=== PATIENT | female | born 1940 | race Caucasian/White ===

== ENCOUNTER → 2024-04-05 12:06 | Outpatient (REF) | payer MEDICARE, BC, SELFPAY ==
[2024-04-05 12:56] LABS: % Basophils 0.5 % (0-2); % Eosinophils 1.9 % (0-6); % Immature Granulocytes 0.2 % (0-0.5); % Lymphocytes 27.7 % (20.5-51.1); % Neutrophils 62.7 % (42.2-75.2); Absolute Eosinophils 0.1 10^3/uL (0-0.7); Absolute Lymphocytes 1.8 10^3/uL (1.2-3.4); Absolute Monocytes 0.4 10^3/uL (0.1-0.6); Hematocrit 35.8 % (37.0-47.0); Hemoglobin 11.7 g/dL (12.0-16.0); Mean Corp Hgb Conc. 32.7 g/dL (33.0-37.0); Mean Corpuscular Hgb 32.3 pg (27.0-31.0); Mean Corpuscular Volume 98.9 fL (81.0-99.0); Mean Platelet Volume 8.5 fL (7.4-10.4); Nucleated Red Blood Cells % 0 %; Platelet Count 404 10^3/uL (130-400); Red Blood Cell Count 3.62 10^6/uL (4.20-5.40); Red Cell Dist. Width 14.2 % (11.5-14.5); White Blood Cell Count 6.3 10^3/uL (4.8-10.8)
[2024-04-05 13:12] LABS: ALT (SGPT) 20 U/L (0-35); AST (SGOT) 29 U/L (14-36); Albumin 3.7 g/dl (3.5-5.0); Alkaline Phosphatase 120 U/L (38-126); Blood Urea Nitrogen 10 mg/dl (7-17); Calcium 9.7 mg/dl (8.4-10.2); Carbon Dioxide 30 mmol/L (22-30); Chloride 102 mmol/L (98-107); Glucose 99 mg/dl (70-99); Potassium 4.1 mmol/L (3.5-5.1); Sodium 136 mmol/L (135-145); Total Bilirubin 0.4 mg/dl (0.2-1.3); Total Protein 7.1 g/dl (6.3-8.2); eGFR > 60.00
== END ==
LOC: SDSPAT 12:06
PROVIDERS: ATTENDING PHYSICIAN Internal Medicine Cardiovascular Disease; FAMILY PHYSICIAN Internal Medicine; OTHER PHYSICIAN Internal Medicine Cardiovascular Disease
DX: Z01.818 Encounter for other preprocedural examination (principal); R06.00 Dyspnea, unspecified; R53.83 Other fatigue
CPT/HCPCS: 36415; 80053; 85025; 93005

== ENCOUNTER 2024-04-08 13:50 | Inpatient (IN) | payer MEDICARE, BC, SELFPAY ==
[2024-04-05 12:22] VITALS: BMI 20.2
--- NOTE | 2024-04-05 13:44 | HPS.HSE ---
Family Physician
-
Family Physician: Dilia Hudson
Chief Complaint
-
Dyspnea and fatigue.
History of Present Illness
The patient is an 83 year old female presenting today for recent complaints of dyspnea and fatigue. These symptoms started late last year and most often occur with heavy exertion. Her routine lunch truck driver, Dr. Hal Zamora, advised she
proceed with an echocardiogram and PET-CT for further evaluation of her symptoms. An echocardiogram on 12/23/2023 demonstrated a preserved ejection fraction with grade 1 diastolic dysfunction, mild-moderate tricuspid regurgitation, mild mitral
regurgitation, and mild pulmonary hypertension. Her PET-CT on 01/18/2024, however, suggested a moderate sized area of ischemia in the septal and apical segments. Given these results, it is recommended that she proceed with a left cardiac
catheterization at this time. She denies any current complaints today such as chest pain, shortness of breath at rest, nausea, vomiting, diarrhea, lightheadedness, cough, sore throat, or fever.
Medical History
Past Medical History
Past Medical History: Reports Other
Additional Past Medical History:
1. Dyspnea and fatigue.
2. Elevated blood pressure without diagnosis of hypertension.
3. Hyperlipidemia.
4. Coronary artery disease.
5. Mild-moderate tricuspid regurgitation.
6. Mild mitral regurgitation.
7. Mild pulmonary hypertension.
8. Rare palpitations.
9. Hiatal hernia.
10. Colon polyps.
11. Diverticulosis.
12. Hemorrhoids.
13. Vertigo.
14. Mild cognitive impairment.
15. Multinodular goiter.
16. Overactive bladder.
17. Chronic back pain.
18. Osteoarthritis, status post left total knee arthroplasty 2019.
19. Multifactorial anemia.
20. Macular degeneration.
Past Surgical History: Reports Other
Additional Past Surgical History:
1. Left total knee arthroplasty.
2. Tonsillectomy.
3. [place]ore teeth extraction.
4. Colonoscopy.
5. Endoscopy.
Social History
Tobacco: Non-smoker
Alcohol: None
Personal:
Living: Other (She lives in a 3 story home independently. )
Family History
Family History: Not pertinent
Allergies / Home Medications
Allergy/Medication List:
Home medications:
1. Prevagen 1 tablet p.o. daily.
2. Rosuvastatin 5 mg p.o. at bedtime.
3. Solifenacin 10 mg p.o. daily.
4. PreserVision 1 tab p.o. daily.
Allergies: Diazepam. Oxybutynin. Myrbetriq. Tramadol.
Adverse drug reactions: Most statins (muscle spasms).
Review of Systems
-
A 12 point ROS was completed and negative except as noted: Yes
Physical Exam
Vital Signs
Blood pressure 148/76. Heart rate 81. Respirations 18. Pulse ox 96% on room air.
Height 5 feet, 4 inches. Weight 53.3 kg. BMI 20.2.
Physical Exam
General: Well Developed, Well Nourished and No Apparent Distress
HEENT: NormoCephalic, Moist mucous membranes, Atraumatic and PERRLA
Respiratory: Clear
Cardiac: Regular Rhythm
GI: Soft, Non Tender and Non Distended
Musculoskeletal: Normal Gait & Station
Skin: Warm and Dry
Neuro: AO x 3 and Other (Mild cognitive deficits as baseline. )
Laboratory Results
-
DIAGNOSTIC STUDIES as of 04/05/2024: White blood cell count 6.3. Hemoglobin 11.7. Platelet count 404,000. Sodium 136. Potassium 4.1. BUN 10. Creatinine 0.7. Glucose 99. Calcium 9.7. AST 29. ALT 20. Albumin 3.7.
EKG 04/05/2024: Normal sinus rhythm.
Impression/Plan
-
IMPRESSION/PLAN:
1. Dyspnea and fatigue: The patient is in need of a left cardiac catheterization with Dr. Keanu Waddell on 04/07/2024. The benefits and risks of the procedure have been explained to the patient. The patient understands these risks and wishes to
proceed. She has been advised to start Aspirin pre-operatively. She will start with one dose of full dose Aspirin today followed by a baby Aspirin daily, up to and including the morning of her procedure.
[2024-04-07] VITALS (24 sets, daily range): BP systolic 103–147; BP diastolic 41–98; BMI 20.1
[2024-04-07] MEDS: LOW STRENGTH ASPIRIN 81 MG PO (08:12)
[2024-04-07] MEDS: NSS 1000 IV ×2 (08:13→10:31)
--- NOTE | 2024-04-07 10:48 | ITS.CL.CATH ---
Arc Welder Apprentice - Catheterization
Cardiac Catheterization
Procedure Report:
CARDIAC CATHETERIZATION REPORT
Date of Procedure: 04/07/2024
Referring: Hal Zamora MD
Indication: Exertional dyspnea with abnormal stress study
HEMODYNAMIC DATA
AO: 136/68
LV: 136/12
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 The visually estimated ejection fraction is 60%
CORONARY ANGIOGRAPHY
Dominance: Right
Left Main: Normal
LAD: The LAD is moderately calcified. There is 70% proximal LAD stenosis with 99% mid LAD stenosis on an angulated segment. There is LOLIS grade II flow from the lesion to the apical LAD. The lesion originates just distal to the takeoff of the
large second diagonal branch. The first diagonal branch is a twig.
Circumflex: Normal
RCA: Dominant mildly calcified vessel with mild luminal irregularities. The RCA terminates with a large PDA and a very small right posterolateral branch
Closure Device: None-the procedure was performed via the right femoral artery using a 5 Thai sheath. Of note, we accessed the right radial artery easily but were unable to pass a soft wire more than several centimeters and after a second arterial
puncture with the same issue we converted to a right femoral artery approach. Manual compression was used to achieve hemostasis at the procedure conclusion.
Radiation (mGy): 139
DAP (cm2.Gy): 10.1
Fluoroscopy time: 1.3 minutes
CONCLUSIONS
1: Preserved left ventricular wall motion with EF 60%. 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
2: Single-vessel CAD as described with high-grade lesions in the proximal and mid LAD.
3. I have recommended revascularization given the severity of the LAD disease and the impaired distal flow. Options include attempted PCI of the proximal and mid LAD lesions versus CABG with grafting of the distal LAD and large second diagonal
branch. The PCI option would be a high risk as the 99% mid LAD stenosis is on an angulated segment and we may not be able to wire this lesion and in attempting to do so could possibly cause an occlusive dissection. Accordingly, I increase the risk
assessment to 1-2% mortality risk and deferred the PCI until we can assure an open operating room with surgical team on standby. After discussion with the patient, we will have cardiac surgery see her today to give their opinion about the best way
to treat her coronary artery disease. I am concerned about the history provided by her family of mild cognitive impairment in terms of a possible cardiopulmonary bypass run. I recommended to her that we admit her today with plan for this high risk
PCI procedure tomorrow if she decides to proceed as recommended. I am not comfortable with her going home with LOLIS grade II flow in the LAD. If she is inclined not to have any revascularization then discharge would be appropriate on medical
therapy
Copy to: Hal Zamora MD, Dilia Hudson, DO
Keanu Waddell MD, [facility], [facility]
[2024-04-07] MEDS: PLAVIX 600 MG PO (14:32)
--- NOTE | 2024-04-07 15:15 | CM ---
CM following for DC planning needs.
Met w/ patient, son and DIL at bedside to complete initial assessment. Pt. resides in a private, multi level home alone. Functionally, patient is reportedly indep. w use of a SPC. Pt. has Rx plan and uses [facility] in [facility] for prescription needs.
Spoke w/ bedside RN; patient slightly confused-med sitter ordered.
Will follow closely for DC planning needs.
[2024-04-07] MEDS: TYLENOL 650 MG PO (15:56)
--- NOTE | 2024-04-07 18:46 | PTCARENOTE ---
Pt received post cardiac cath done via right femoral artery, dressing dry and intact, no sign of bleeding or hematoma. Pt c/o back discomfort which resolved after tylenol. Pt very pleasant but forgetful, oriented to place and person but not time. Pt
at risk to fall, precautions in place and medsitter surveillance. Pt's family at bedside. Pt OOB using a walker with minimal assistance, voiding without difficulty. Telemetry shows sinus rhythm. Plan for high risk PCI on 04/08.
[2024-04-07] MEDS: CRESTOR 5 MG PO (21:46)
--- NOTE | 2024-04-07 23:30 | PTCARENOTE ---
Pt. forgetful and confused at times, does attempt OOB without assist and did remove her tele monitor. Easily reoriented, bed alarm and med sitter on. Right groin dressing CDI with no S&S hematoma, pedal pulse palpable. No complaints
CP/discomfort, NSR on the monitor. Pt. sleeping.
[2024-04-08] VITALS (13 sets, daily range): BP systolic 91–137; BP diastolic 49–111; PULSE 86; BMI 20.1
[2024-04-08 03:01] LABS: Hemoglobin 11.1 g/dL (12.0-16.0); Mean Corp Hgb Conc. 32.6 g/dL (33.0-37.0); Mean Corpuscular Hgb 32.1 pg (27.0-31.0); Mean Corpuscular Volume 98.3 fL (81.0-99.0); Mean Platelet Volume 8.6 fL (7.4-10.4); Platelet Count 336 10^3/uL (130-400); Red Blood Cell Count 3.46 10^6/uL (4.20-5.40); Red Cell Dist. Width 14.6 % (11.5-14.5); White Blood Cell Count 7.9 10^3/uL (4.8-10.8)
[2024-04-08 03:16] LABS: Blood Urea Nitrogen 15 mg/dl (7-17); Calcium 9.3 mg/dl (8.4-10.2); Carbon Dioxide 28 mmol/L (22-30); Chloride 106 mmol/L (98-107); Estimated Creatinine Clearance 62 ml/min; Glucose 103 mg/dl (70-99); HDL Cholesterol 50 mg/dl; LDL Cholesterol, Calculated 102 mg/dl; Potassium 4.1 mmol/L (3.5-5.1); Sodium 136 mmol/L (135-145); Total Cholesterol 173 mg/dl (50-199); Triglyceride 108 mg/dl (10-149); Very Low Density Lipoprotein 21 mg/dl (0-30); eGFR > 60.00
[2024-04-08] MEDS: LOW STRENGTH ASPIRIN 81 MG PO (08:42)
[2024-04-08] MEDS: PLAVIX 75 MG PO (08:42)
--- NOTE | 2024-04-08 09:34 | PTCARENOTE ---
Pt AAO to self only. Pt remains impulsive and forgetful. Pt's family at bedside. Pt's bed and chair alarms are off at this time. Video monitoring on standby. Constant visualization by RN. Will monitor.
--- NOTE | 2024-04-08 11:43 | CM ---
Addendum entered by CHINMAY Greenwood 04/08/24 16:07:
Pt. evaluated by PT. Collaborated w/ PT post evaluation. Some concern w/ unsteadiness for transfers and for cognition.
Pt. adamant about returning home at this time. Would benefit from VN at minimum.
Later met w/ patient and son at bedside.
Offered VN to patient. She will agree to this but expressed certainty that she will not be placed in a facility.
Pt. has mult. RW for use at home as needed. She agreed to use them.
Son will be staying w/ her temporarily upon DC. Arranged [facility] VN.
PLAN: HOME w/ [facility] VN.
Addendum entered by CHINMAY Greenwood 04/08/24 11:55:
[facility] VN able to accept.

Original Note:
CM following for DC planning needs.
Met w/ sons Zenon [phone] and Roland [phone] at bedside. Pt. was in procedure at this time.
Sons have concerns with patient's possible Dementia dx. They are seeking Neurological testing at this time. Pt. lives alone, family lives out of state. Has friends/neighbors but assist minimally. Pt. still driving. Family has Neuro appt. in
July, hoping for something sooner.
Reviewed DC options. Would like to see if patient is indep. w/ PT post procedure as she will be alone once family leaves.
Would at minimal benefit from VN (RN, PT, OT, MANAGER MAC). Discussed this and family agreeable.
Pt. has termite inspector care insurance and family seeking skilled nursing care at home, eventually.
Initiated referral to [facility] for home health care, await response.
Antic. DC to home with VN.
Await response from [facility].
Await PT eval post procedure, if medically appropriate.
[2024-04-08] MEDS: NSS 1000 IV (12:20)
--- NOTE | 2024-04-08 12:24 | ITS.CL.ANGIO ---
Belt Glass Sander - Angioplasty
Angioplasty
Procedure Report:
CORONARY ANGIOPLASTY REPORT
Date of Procedure: 04/08/2024
Referring: Hal Zamora MD
Indication: Symptomatic severe single-vessel CAD
PROCEDURE SUMMARY:
1. Successful angioplasty and stenting of 99% mid LAD stenosis using 2.25 x 30 [place] VERONICA
2. Successful angioplasty and stenting of 70% proximal LAD stenosis using 3.0 x 15 [place] VERONICA
DESCRIPTION OF PROCEDURE: The patient underwent diagnostic angiography yesterday at which time we found subtotal occlusion of the mid LAD with slow LOLIS grade II flow to the apex. Additionally there was a highly calcific 70% proximal LAD stenosis.
The mid lesion was highly angulated and 99% in severity and we did not feel ad hoc PCI was appropriate as there was no open operating room/surgical team available at the moment of diagnostic angiography. I had her seen by CT surgery who agreed that
PCI attempt was the best course of action and the patient consented to a high risk PCI (2% mortality risk). Plans were made to perform the procedure when there was an available cardiac surgeon and operating room should things go south while trying
to get a wire across the mid LAD lesion.
Access was obtained using a micropuncture technique via the right femoral artery and a 6 Russian sheath was placed. Heparin 5000 units was administered. The ACT was kept at greater than 250sec for the duration of the procedure. We then advanced an
EBU 3.5 guide catheter to the left coronary ostium. A Fielder XT wire was advanced through the guide but could not be manipulated into the highly angulated takeoff of the LAD. Specifically, I wanted a very short bend on the tip of the wire to
maximize her chances of the traversing the subtotally occluded mid LAD. This wire was replaced with a BMW wire with a long curve which allowed us access into the LAD. As expected the BMW would not cross the mid LAD lesion. We then advanced a
0.014 compatible aurelio exchange catheter over the BMW into the proximal LAD and made the wire exchange for the Fielder XT which I felt would give us the greatest chance of success in crossing the lesion. We were able to get this wire through the
diseased segment into the apical LAD without much of a fight. I attempted to pass the aurelio exchange catheter through the lesion but not surprisingly this was not possible. The exchange catheter was carefully removed and replaced with a 1.5 x 12
Accelerated [employer] Euphora balloon which was successfully passed through the diseased segments of LAD. A series of dilations were performed over a length of about 20 mm with the 1.5 mm balloon which had good balloon expansion at 10 rip. We then used a 2.0
x 20 trek balloon which also had good balloon expansion at 12 rip. Angiography at this point demonstrated markedly improved flow into the distal LAD. There was evidence of significant dissection just distal to the takeoff of the large diagonal
branch at the origin of the lesion. The patient became nauseous and hypotensive with systolic blood pressure in the 50 range. She was rapidly treated with IV doses of phenylephrine, IV fluid, and Zofran 4 mg. The nausea resolved and her blood
pressure came up to 110 systolic. We attempted unsuccessfully to pass a 2.25 x 28 Xience VERONICA through the lesion. The undeployed stent was carefully removed and replaced with a 2.25 x 30 [place] VERONICA which was successfully passed through the lesion.
The stent was deployed at 14 rip then postdilated with a 2.25 NC Euphora to 17 rip. We then postdilated the proximal 12 mm of the stent with a 2.5 NC trek to 17 rip. This balloon was also used to predilate the proximal LAD lesion. At this point
we placed a 3.0 x 15 Sky VERONICA across the proximal LAD lesion with deployment at 14 rip then postdilatation with a 3.0 NC trek to 17 rip. The final angiographic result was outstanding with no residual stenosis at either lesion site and normal LOLIS
grade III flow to the apical LAD. The large now jailed diagonal remained widely patent with no evidence of ostial compromise and normal flow.
ANTI-COAGULATION THERAPY
1: Heparin 6000 units total
Closure Device Used: 6 Russian Angio-Seal RFA
Radiation (mGy): 433
DAP (cm2.Gy): 27.9
Fluoroscopy time: 18.2 minutes
CONCLUSIONS: Successful high risk PCI with stenting of the mid and proximal LAD lesions as described above. Recommend dual antiplatelet therapy for minimum 6 and ideally 12 months then transition to aspirin monotherapy. We will add a PPI with
recommendation to continue this until she is no longer on DAPT
Copy to: Hal Zamora MD, Dilia Hudson, DO
Keanu Waddell MD, [facility], [facility]
--- NOTE | 2024-04-08 17:01 | PTCARENOTE ---
Received pt post PCI. VSS. Right groin access site w/ dressing intact. Post angiography check per protocol. Pt denies any chest discomfort or SOB. Will monitor.
[2024-04-08] MEDS: CRESTOR 5 MG PO (20:08)
--- NOTE | 2024-04-08 20:42 | PTCARENOTE ---
Assumed care, son at bedside. SR HR 70's. Right groin dressing soft and dry, +2 pedal pulse. Right radial site SPECIALTY SALES CONSULTANT, slightly bruised. Assisted to the bathroom, gait steady. Med sitter discontinued, son stating over tonight. She is alert and oriented
to self, time and knows she's in the hospital, forgetful and cooperative. Call pereyra in reach
[2024-04-09 03:27] VITALS: BP 132/65
[2024-04-09 03:29] VITALS: BMI 19.9
[2024-04-09 04:32] LABS: Hematocrit 32.4 % (37.0-47.0); Hemoglobin 10.7 g/dL (12.0-16.0); Mean Corpuscular Hgb 32.2 pg (27.0-31.0); Mean Corpuscular Volume 97.6 fL (81.0-99.0); Mean Platelet Volume 8.4 fL (7.4-10.4); Platelet Count 318 10^3/uL (130-400); Red Blood Cell Count 3.32 10^6/uL (4.20-5.40); Red Cell Dist. Width 14.6 % (11.5-14.5)
[2024-04-09 04:59] LABS: Blood Urea Nitrogen 14 mg/dl (7-17); Calcium 9.2 mg/dl (8.4-10.2); Carbon Dioxide 29 mmol/L (22-30); Chloride 104 mmol/L (98-107); Estimated Creatinine Clearance 52 ml/min; Glucose 101 mg/dl (70-99); Potassium 4.5 mmol/L (3.5-5.1); Sodium 136 mmol/L (135-145); eGFR > 60.00
[2024-04-09 07:01] VITALS: BP 132/97
--- NOTE | 2024-04-09 08:00 | W.PN.CD ---
Addendum entered and electronically signed by Sridhar Barrera MD 04/09/24 08:13:
83 yo female with CAD admitted following PCI 04/08. She feels well: no chest pain. Exam with RRR, no murmurs, no edema. Tele and EKG: NSR. Hgb stable at 10.7.
Will discharge home on ASA/Plavix.
Original Note:
Today's Communication / Plan
-
d/c home
Impression / Plan
-
Pt offers no complaints this am. No CP,palps, SOB. No R groin issues.
CAD: s/p LAD PCI. Con't meds
hyperlipidemia : statin
dispo: d/c home
Physical Exam
Vital Signs/Labs
Vital Signs
Temp Pulse Resp BP Pulse Ox
98.6 F 92 16 132/65 97
04/09/24 03:29 04/09/24 03:27 04/09/24 03:29 04/09/24 03:27 04/09/24 03:29
04/08/24 04/09/24 04/10/24
06:59 06:59 06:59
Actual Weight 53 kg 52.5 kg
04/09/24 03:35
04/09/24 03:35
Triglycerides 108 mg/dl (10-149) 04/08/24 02:49
LDL Cholesterol, Calc 102 mg/dl 04/08/24 02:49
VLDL Cholesterol, Calc 21 mg/dl (0-30) 04/08/24 02:49
HDL Cholesterol 50 mg/dl 04/08/24 02:49
Physical Exam
Constitutional: No acute distress
Cardiovascular: Rhythm & rate is regular and Pedal edema is absent
Respiratory: Respiratory effort normal and Lungs clear to auscul.
Neuro/Psych: AO x 3
Other: Cath Site (R groin no hematoma )
Data Reviewed
-
Date of Service: April 09, 2024
EKG: Tracing Personally Visualized and interpreted (NSR 71 bpm ) and Other (tele: NSR occ PVC's )
Labs: Labs Reviewed by me
--- NOTE | 2024-04-09 08:04 | W.DS.TRANS ---
DC Summary - Lay Brother
-
Discharge Instructions:
Discharge Diagnosis/Procedures Cardiac cath, Angioplasty with stent to LAD
Diet Low Cholesterol
Driving Restrictions No driving for 24 hours
Other Services Cardiac Rehab
Instructions:
Stand-Alone Forms: DC Instructions- Cath/EP Lab
Changes to Home Medications: Yes
Discharge Medications:
DC Medications w/original date entered in [employer]
Prevagen 1 tab PO DAILY 04/01/24
rosuvastatin 5 mg tablet 5 mg PO HS 04/01/24
solifenacin 10 mg tablet 10 mg PO DAILY 04/01/24
vit C 250 mg-vit E 90 mg-zinc 40 mg-copper 1 [id number] capsule (PreserVision AREDS-2) 1 tab PO DAILY 04/01/24
aspirin 81 mg chewable tablet (Children's Aspirin) 81 mg PO DAILY #1 tab 04/08/24
clopidogrel 75 mg tablet 75 mg PO DAILY #90 tabs 04/08/24
nitroglycerin 0.4 mg sublingual tablet 0.4 mg sublingual [id number] PRN chest pain #25 tabs 04/08/24
pantoprazole 40 mg tablet,delayed release 40 mg PO DAILY #90 tabs 04/08/24
Home Medication Changes
aspirin 81 mg chewable tablet (Children's Aspirin) 81 mg PO DAILY #1 tab 04/08/24
clopidogrel 75 mg tablet 75 mg PO DAILY #90 tabs 04/08/24
nitroglycerin 0.4 mg sublingual tablet 0.4 mg sublingual [id number] PRN chest pain #25 tabs 04/08/24
pantoprazole 40 mg tablet,delayed release 40 mg PO DAILY #90 tabs 04/08/24
Pending Results: No
[2024-04-09] MEDS: PROTONIX 40 MG PO (08:26)
[2024-04-09] MEDS: PLAVIX 75 MG PO (08:26)
[2024-04-09] MEDS: LOW STRENGTH ASPIRIN 81 MG PO (08:26)
--- NOTE | 2024-04-09 09:26 | PTCARENOTE ---
Pt feeling well this morning, denies pain, hoping to be discharged. OOB to BR with rolling walker, irais well, son at bedside.
== END 2024-04-09 10:30 | disposition home health service (06) | DRG 322 ==
LOC: IVU 13:50
PROVIDERS: Nurse Practitioner Adult Health; ADMITTING PHYSICIAN Internal Medicine Cardiovascular Disease; FAMILY PHYSICIAN Internal Medicine
PROC: B2111ZZ Fluoroscopy of Multiple Coronary Arteries using Low Osmolar Contrast (ICD-10-PCS; 2024-04-07)
PROC: 4A023N7 Measurement of Cardiac Sampling and Pressure, Left Heart, Percutaneous Approach (ICD-10-PCS; 2024-04-07)
PROC: B2151ZZ Fluoroscopy of Left Heart using Low Osmolar Contrast (ICD-10-PCS; 2024-04-07)
PROC: 027035Z Dilation of Coronary Artery, One Artery with Two Drug-eluting Intraluminal Devices, Percutaneous Approach (ICD-10-PCS; 2024-04-08)
DX: I25.10 Atherosclerotic heart disease of native coronary artery without angina pectoris (principal); E78.5 Hyperlipidemia, unspecified; D50.9 Iron deficiency anemia, unspecified; E06.9 Thyroiditis, unspecified; G31.84 Mild cognitive impairment of uncertain or unknown etiology; Z79.82 Long term (current) use of aspirin; Z82.49 Family history of ischemic heart disease and other diseases of the circulatory system
CPT/HCPCS: 36415; 80048; 80053; 80061; 85025; 85027; 85347; 93005; 93458; 97162; C1725; C1760; C1769; C1874; C1894; C9600; Q9967